=== PATIENT | female | born 1980 | race Caucasian/White ===

== ENCOUNTER 2022-08-18 20:53 | Emergency (ER) | payer OTHER ==
[~2022-08-18] VITALS: Ht 154.9 cm; Wt 75.3 kg
[2022-08-18] MEDS ORDERED: NAPROSYN500 MG PO (21:47)
[2022-08-18] MEDS ORDERED: METHOCARBAMOL750 M1 PO (21:47)
== END 2022-08-18 22:06 | disposition home or self-care (01) ==
LOC: ED 20:53
DX: M54.42 Lumbago with sciatica, left side (principal); M79.605 Pain in left leg; J02.9 Acute pharyngitis, unspecified; J45.909 Unspecified asthma, uncomplicated; F41.9 Anxiety disorder, unspecified; F32.A Depression, unspecified; Z88.1 Allergy status to other antibiotic agents; Z88.8 Allergy status to other drugs, medicaments and biological substances

== ENCOUNTER 2022-08-27 21:02 | Emergency (ER) | payer OTHER ==
[~2022-08-27] VITALS: Ht 154.9 cm; Wt 72.6 kg
[~2022-08-27 21:02] MED LIST: METHOCARBAMOL750 M1 PO; NAPROSYN500 MG PO
[2022-08-27] MEDS ORDERED: CITALOPRAM40 MG PO (21:15)
[2022-08-27] MEDS ORDERED: NEURONTIN300 MG PO (21:15)
[2022-08-27] MEDS ORDERED: OMEPRAZOLE40 MG PO (21:16)
[2022-08-27] MEDS ORDERED: BUSPIRONE15 MG PO (21:16)
[2022-08-27] MEDS ORDERED: BACLOFEN20 M1 PO (21:17)
[2022-08-28] MEDS ORDERED: METHOCARBAMOL750 M1 PO (00:16)
[2022-08-28] MEDS ORDERED: MEDROL DOSEPAK4 MG PO (00:16)
== END 2022-08-28 00:25 | disposition home or self-care (01) ==
LOC: ED 21:02
DX: M54.32 Sciatica, left side (principal); J45.909 Unspecified asthma, uncomplicated; F41.9 Anxiety disorder, unspecified; F32.A Depression, unspecified; Z88.1 Allergy status to other antibiotic agents; Z88.8 Allergy status to other drugs, medicaments and biological substances

== ENCOUNTER 2024-02-25 01:01 | Emergency (ER) | payer OTHER ==
[~2024-02-25] VITALS: Ht 154.9 cm; Wt 74.8 kg
[~2024-02-25 01:01] MED LIST changes: +BACLOFEN20 M1 PO; +BUSPIRONE15 MG PO; +CITALOPRAM40 MG PO; +MEDROL DOSEPAK4 MG PO; +NEURONTIN300 MG PO; +OMEPRAZOLE40 MG PO
[2024-02-25] MEDS ORDERED: Ketorolac Tromethamine 30 MG/ML VIAL IM ONE (01:25)
[2024-02-25 01:40] LABS: BASO # 0.1 10*3/uL (0.0-0.1); BASO % 0.5 % (0.0-1.0); EOS # 0.1 10*3/uL (0.0-0.4); EOS % 0.5 % (1.0-4.0); HEMATOCRIT 35.1 % (37.0-47.0); MEAN CELL VOLUME 84.6 fl (81.0-99.0); MEAN CORPUSCULAR HGB 26.7 pg (27.0-31.0); MEAN CORPUSCULAR HGB CONC 31.6 g/dl (33.0-37.0); MEAN PLATELET VOLUME 9.6 fl (9.6-12.3); MONO # 0.9 10*3/uL (0.1-1.0); MONO % 7.7 % (3.0-9.0); NEUT # 8.3 10*3/uL (2.3-7.9); NEUT % 75.6 % (47.0-73.0); PLATELET COUNT AUTOMATED 416 10*3/uL (130-400); RED BLOOD COUNT 4.15 10*6/uL (4.10-5.10); RED CELL DISTRI WIDTH 16.1 % (0-14.5)
== END 2024-02-25 02:08 | disposition home or self-care (01) ==
LOC: ED 01:01
PROVIDERS: Internal Medicine
DX: M54.42 Lumbago with sciatica, left side (principal); H92.02 Otalgia, left ear; R22.1 Localized swelling, mass and lump, neck; R50.9 Fever, unspecified; M79.605 Pain in left leg; J45.909 Unspecified asthma, uncomplicated; F41.9 Anxiety disorder, unspecified; F32.A Depression, unspecified; K21.9 Gastro-esophageal reflux disease without esophagitis; Z88.1 Allergy status to other antibiotic agents; Z88.8 Allergy status to other drugs, medicaments and biological substances